=== PATIENT | female | born 1980 | race Caucasian/White ===

== ENCOUNTER 2016-07-28 06:59 | Day surgery (SDC) | payer BC ==
--- NOTE | ~2016-07-28 | OP ---
Record Of Operation [facility] [address] [place]. [address] NAME: EVE KNAPP : 84 STATUS : [facility]#: [id number] AGE: 35 ADM/REG DATE : 07/28/16 MR#: [id number] REPORT SERV DATE: 07/28/16 DICTATED BY: CLAUDIO MALIK DATE: 07/28/16 REPORT STATUS : Draft TRANSCRIBED BY: ILDA DATE: 07/28/16 DATE OF PROCEDURE: 07/28/2016 PREOPERATIVE DIAGNOSIS: Left-sided C6-C7 disk herniation with nerve compression, left cervical radiculopathy. POSTOPERATIVE DIAGNOSIS: Left-sided C6-C7 disk herniation with nerve compression, left cervical radiculopathy. PROCEDURE: C6-C7 anterior cervical diskectomy and fusion, placement of Medtronic PEEK interbody spacer C6-C7, anterior cervical plate from Medtronic C6-C7, allograft bone matrix, neuromonitoring, and operative microscope. ANESTHESIA: General. ESTIMATED BLOOD LOSS: 5 mL. COMPLICATIONS: None. INDICATIONS: The patient is a 35-year-old female with intractable neck and left arm pain, failed conservative treatment. After discussion of risks and benefits, elected to proceed with surgical intervention. PROCEDURE IN DETAIL: I identified the patient in the holding area. Consent was obtained. Went to the operating room. Underwent general anesthesia with endotracheal intubation. Prepped and draped in the usual sterile fashion. Operative safety pause was performed, then we proceeded with surgery. A transverse incision was made in line with the skin crease at the C6-C7 level on the left side, taken through the platysma. Dissection was carried out down to the anterior aspect of the spine. Texline pins placed and lateral fluoroscopic image used to verify operative level. Pins were placed at C6 and C7. Distraction applied. Operative microscope was brought in. A knife was used to perform an annulotomy. Free disk material removed with pituitary. Anterior osteophytes removed with Kerrison. Posterior osteophytes were removed with a richa bur. Foraminotomies performed with a Kerrison and there was a piece of extruded disk fragment that was in the foramen causing severe nerve compression and it was removed. Nerve was free of compression following that. Endplates were prepared with curettes, rasp, and a cutting bur. Irrigation performed. Hemostasis achieved. Trial spacers implanted, then a Medtronic PEEK interbody spacer with allograft bone matrix was placed at the C6-C7 level. Texline pins were removed and an anterior cervical plate from Medtronic was placed at C6-C7. Screws were placed and final tightened. Locking mechanisms were engaged. Irrigation performed. Hemostasis achieved. Final AP and lateral images were obtained. A layered closure performed. Sterile dressings applied. The patient awoke and extubated, taken to the recovery room in stable condition. OPERATIVE FINDINGS: Left-sided disk herniation C6-C7 with nerve compression. No sustained neuromonitoring alerts. Record Of Operation [facility] [address] [place]. [address] NAME: EVE KNAPP : 84 STATUS : [facility]#: [id number] AGE: 35 ADM/REG DATE : 07/28/16 MR#: [id number] REPORT SERV DATE: 07/28/16 DICTATED BY: CLAUDIO MALIK DATE: 07/28/16 REPORT STATUS : Draft TRANSCRIBED BY: ILDA DATE: 07/28/16 GIULIANA/ILDA Claudio Malik DO / [id number] CC: DO Inez Ruano M.D.
[~2016-07-28 06:59] MED LIST: ADDERXR30 PO; BIRTH CONTROL PILL PO; FISH-EPA1000 MG PO; GLUCPH8 PO; MOBIC15 MG PO; MULTIPLE VIT PO; WELLSR100 PO; ZOL100 PO
== END 2016-07-28 16:36 | disposition home or self-care (01) ==
LOC: SDC 06:59
PROVIDERS: Orthopaedic Surgery
PROC: 0RG10K0 Fusion of Cervical Vertebral Joint with Nonautologous Tissue Substitute, Anterior Approach, Anterior Column, Open Approach (ICD-10-PCS; 2016-07-28)
PROC: 0RG10J0 Fusion of Cervical Vertebral Joint with Synthetic Substitute, Anterior Approach, Anterior Column, Open Approach (ICD-10-PCS; 2016-07-28)
PROC: 0RB30ZZ Excision of Cervical Vertebral Disc, Open Approach (ICD-10-PCS; principal; 2016-07-28 08:45)
PROC: 0RG10A0 Fusion of Cervical Vertebral Joint with Interbody Fusion Device, Anterior Approach, Anterior Column, Open Approach (ICD-10-PCS; 2016-07-28 08:45)
DX: M50.123 Cervical disc disorder at C6-C7 level with radiculopathy (principal); K21.9 Gastro-esophageal reflux disease without esophagitis; F90.9 Attention-deficit hyperactivity disorder, unspecified type; G43.909 Migraine, unspecified, not intractable, without status migrainosus; F32.9 Major depressive disorder, single episode, unspecified; Z98.890 Other specified postprocedural states
CPT/HCPCS: 80048; 82962; 84703; 85014; 85018; 87641; 88304; 88311; 93005; A9270-GY; C1713; J0690; J2250; J2405; J2710; J3010